=== PATIENT | female | born 2000 | race Caucasian/White ===

== ENCOUNTER 2023-10-24 19:58 | Emergency (ER) | payer OTHER ==
[2023-10-24 20:22] VITALS: BP 95/59; PULSE 53; RESP 22; TEMP 98.8; BMI 18.6
[2023-10-24] MEDS ORDERED: ACETAMINOPHEN INJECTION 100 ML IVPB ONE (21:01)
[2023-10-24] MEDS: SODIUM CHLORIDE 0.9% 500 ML INFUS.BAG IV ONE (21:14)
[2023-10-24] MEDS: ACETAMINOPHEN 1000 MG/100 ML BAG IVPB ONE (21:14)
[2023-10-24 21:34] LABS: BASO % 0.4 % (0-2.0); EOS % 1.8 % (0-4.5); HEMATOCRIT 36.7 % (32.4-45.2); HEMOGLOBIN 11.9 GM/dL (10.7-15.3); LYMPH % 13.2 % (8-40); MCH 27.5 pg (25.7-33.7); MCHC 32.3 g/dl (32.0-36.0); MEAN CELL VOLUME 85.3 fl (80-96); MEAN PLT VOLUME 8.3 fl (7.5-11.1); MONO % 6.4 % (3.8-10.2); NEUT % 78.2 % (42.8-82.8); PLATELET COUNT 224 10^3/uL (134-434); RBC 4.31 M/mm3 (3.60-5.2); RDW 17.5 % (11.6-15.6); WHITE BLOOD COUNT 11.7 K/mm3 (4.0-10.0)
[2023-10-24 21:45] LABS: POTASSIUM 4.2 mmol/L (3.5-5.1)
[2023-10-24 22:02] LABS: ALBUMIN 4.1 g/dl (3.4-5.0); BILIRUBIN,TOTAL 0.4 mg/dL (0.2-1); BLOOD UREA NITROGEN 12.2 mg/dL (7-18); CALCIUM 9.3 mg/dL (8.5-10.1); CREATININE 0.7 mg/dL (0.55-1.3); TOT PROT 7.4 g/dl (6.4-8.2)
== END 2023-10-24 22:47 | disposition home or self-care (01) ==
LOC: JER 19:58
PROC: 3E033NZ Introduction of Analgesics, Hypnotics, Sedatives into Peripheral Vein, Percutaneous Approach (ICD-10-PCS; principal; 2023-10-24)
DX: R10.30 Lower abdominal pain, unspecified (principal); R55 Syncope and collapse; R06.02 Shortness of breath; R51.9 Headache, unspecified; R61 Generalized hyperhidrosis
CPT/HCPCS: 36415; 71046-TC-FY; 80053; 84484; 85025; 86850; 86900; 86901; 93005; 93010; 99285-25; J0131